=== PATIENT | female | born 1965 | race Caucasian/White ===

== ENCOUNTER 2021-04-12 11:31 | Outpatient (REF) | payer OTHER, SELFPAY ==
[2021-04-12 13:53] LABS: MANUAL DIFF FLAG NO
[2021-04-12 14:01] LABS: Basophils Absolute Auto 0.1 X10*3/uL (0.0-0.2); Basophils Percent Auto 0.7 % (0-2); Eosinophils Absolute Auto 0.2 X10*3/uL (0.0-0.4); Eosinophils Percent Auto 2.5 % (0-4); Hematocrit 41.3 % (37-47); Hemoglobin 13.4 g/dl (12.0-16.0); Imm Gran Abs Auto 0.03 X10*3/uL (0.00-0.03); Imm Gran Pct Auto 0.4 % (0.0-0.4); Lymphocytes Absolute Auto 2.1 X10*3/uL (1.2-4.9); Lymphocytes Percent Auto 31.1 % (20-40); Mean Corpuscular HGB Conc 32.4 g/dl (31.0-35.0); Mean Corpuscular Hemoglobin 28.8 pg (27.0-33.0); Mean Corpuscular Volume 88.8 fL (80-98); Mean Platelet Volume 10.8 fL (9.4-12.3); Monocytes Absolute Auto 0.7 X10*3/uL (0.1-1.2); Monocytes Percent Auto 9.9 % (2-11); Neutrophils Absolute Auto 3.7 X10*3/uL (2.0-8.3); Neutrophils Percent Auto 55.4 % (45-73); Platelet Count 347 X10*3/uL (160-400); Red Blood Count 4.65 X10*6/uL (4.20-5.50); White Blood Count 6.7 X10*3/uL (4.8-10.8)
[2021-04-12 14:17] LABS: Alanine Aminotransferase 25 U/L (0-31); Albumin Level 4.4 g/dL (3.5-5.0); Alkaline Phosphatase 101 U/L (39-117); Anion Gap 12 (12-20); Aspartate Amino Transferase 20 U/L (5-31); Bilirubin Total 0.4 mg/dL (0.0-1.0); Blood Urea Nitrogen 12 mg/dL (9-16); Calcium 10.2 mg/dL (8.4-10.2); Carbon Dioxide 30 mmol/L (22-29); Chloride 103 mmol/L (96-108); Cholesterol 211 mg/dL; Estimated Glomerular Filt Rate > 60; Glucose Fasting 103 mg/dL (60-99); HDL Cholesterol 56 mg/dL; LDL Cholesterol Calculated 135 mg/dl; Potassium 4.6 mmol/L (3.3-5.1); Sodium 140 mmol/L (135-145); Triglycerides 104 mg/dL
[2021-04-12 14:39] LABS: Vitamin D 25-OH Total 28.2 ng/mL (>30)
== END 2021-04-12 11:32 | disposition home or self-care (01) ==
LOC: HO.HMGCLDS 11:31
PROVIDERS: PCP Internal Medicine; Visit Provider Internal Medicine
DX: Z00.00 Encounter for general adult medical examination without abnormal findings (principal); G93.5 Compression of brain; K21.9 Gastro-esophageal reflux disease without esophagitis; K44.9 Diaphragmatic hernia without obstruction or gangrene; S32.019A Unspecified fracture of first lumbar vertebra, initial encounter for closed fracture; Z78.0 Asymptomatic menopausal state; Z86.16 Personal history of COVID-19; Z98.51 Tubal ligation status; Z98.890 Other specified postprocedural states
CPT/HCPCS: 36415; 80053; 80061; 82306; 85025

== ENCOUNTER 2021-07-10 15:47 | Outpatient (REF) | payer OTHER, SELFPAY ==
--- NOTE | ~2021-07-10 | US_ITS ---
EXAMINATION: US SOFT TISSUE OF THE NECK CLINICAL INFORMATION: Localized swelling, mass and lump, unspecified. COMPARISON: None TECHNIQUE: Linear transducer grayscale and color Doppler examination of the palpable area superior to clavicle. FINDINGS: In the region of concern there are 2 lymph nodes identified. These are less than 1 cm in size with normal morphology. No suspicious findings. US/US soft tiss head and/or neck IMPRESSION: 2 small lymph nodes are seen in the area of concern with no pathologic abnormality.
== END 2021-07-10 15:48 | disposition home or self-care (01) ==
LOC: HO.US 15:47
PROVIDERS: PCP Internal Medicine; Visit Provider Internal Medicine
DX: R22.9 Localized swelling, mass and lump, unspecified (principal)
CPT/HCPCS: 76536

== ENCOUNTER 2021-07-16 14:42 | Outpatient (REF) | payer OTHER, SELFPAY ==
--- NOTE | ~2021-07-16 | MM_ITS ---
EXAMINATION: MM SCREENING DIGITAL BREAST TOMOSYNTHESIS, BILATERAL CLINICAL INFORMATION: Screening. Asymptomatic. The lifetime risk of breast cancer based on the Tyrer-Cuzick Model is 8%. COMPARISON: Mammography: 08/19/2018, 08/18/2017, 08/14/2016 TECHNIQUE: Digital breast tomosynthesis is performed in both the craniocaudal and mediolateral oblique views along with computer-aided detection (CAD). Synthesized 2D images are generated from the tomosynthesis. FINDINGS: There are scattered areas of fibroglandular density (ACR BI-RADS breast composition Category b). There are no significant masses, abnormal calcifications, or other abnormalities. There are numerous scattered round, rim, predominantly dermal calcifications again noted. No significant changes. MM/MM tomosynthesis screening BI IMPRESSION: No mammographic evidence of malignancy. ASSESSMENT: BI-RADS 2: Benign RECOMMENDATION: Routine annual mammography screening. This patient's information was entered into a reminder system with a target due date for their next mammogram.
== END 2021-07-16 14:43 | disposition home or self-care (01) ==
LOC: HO.MAMMO 14:42
PROVIDERS: PCP Internal Medicine; Visit Provider Internal Medicine
DX: Z12.31 Encounter for screening mammogram for malignant neoplasm of breast (principal)
CPT/HCPCS: 77063; 77067

== ENCOUNTER 2021-09-18 12:19 | Outpatient (REF) | payer OTHER, SELFPAY ==
[2021-09-24 03:12] LABS: HPV mRNA E6/E7 rflx Not Detected (Not Detected)
== END 2021-09-18 12:20 | disposition home or self-care (01) ==
LOC: HO.LAB 12:19
PROVIDERS: Visit Provider Advanced Practice Midwife
DX: Z01.419 Encounter for gynecological examination (general) (routine) without abnormal findings (principal); Z11.51 Encounter for screening for human papillomavirus (HPV); N95.9 Unspecified menopausal and perimenopausal disorder; N90.89 Other specified noninflammatory disorders of vulva and perineum; G93.5 Compression of brain; Z86.19 Personal history of other infectious and parasitic diseases; Z98.51 Tubal ligation status; Z79.899 Other long term (current) drug therapy
CPT/HCPCS: 87624; 88142

== ENCOUNTER 2021-10-23 10:27 | Outpatient (REF) | payer OTHER, SELFPAY ==
--- NOTE | ~2021-10-23 | US_ITS ---
EXAMINATION: US VENOUS ULTRASOUND WITH DOPPLER LOWER EXTREMITY, BILATERAL CLINICAL INFORMATION: Right lower leg pain COMPARISON: None TECHNIQUE: Ultrasound of the deep veins is performed from the hip to the calf with compression sonography and color and pulse Doppler assessment. Spectral analysis with color-flow imaging is performed. FINDINGS: RIGHT: There is normal venous compression and respiratory variation and augmented flow. The visualized common femoral vein, superficial femoral vein, profunda femoral vein, popliteal vein, and the trifurcation region shows no evidence of deep venous thrombosis. There is no significant popliteal fossa cyst. No popliteal artery aneurysm LEFT: There is normal venous compression and respiratory variation and augmented flow. The visualized common femoral vein, superficial femoral vein, profunda femoral vein, popliteal vein, and the trifurcation region shows no evidence of deep venous thrombosis. There is no significant popliteal fossa cyst. No popliteal artery aneurysm. US/US venous duplex LE BI IMPRESSION: No acute DVT demonstrated in the bilateral lower extremity.
== END 2021-10-23 10:28 | disposition home or self-care (01) ==
LOC: HO.US 10:27
PROVIDERS: Visit Provider Internal Medicine
DX: M79.661 Pain in right lower leg (principal); M79.662 Pain in left lower leg
CPT/HCPCS: 93970

== ENCOUNTER 2021-11-21 08:10 | Outpatient (REF) | payer OTHER, SELFPAY ==
[2021-11-21 11:35] LABS: MANUAL DIFF FLAG NO
[2021-11-21 11:51] LABS: Basophils Absolute Auto 0.1 X10*3/uL (0.0-0.2); Basophils Percent Auto 0.9 % (0-2); Eosinophils Absolute Auto 0.1 X10*3/uL (0.0-0.4); Eosinophils Percent Auto 1.8 % (0-4); Hematocrit 40.4 % (37.0-47.0); Hemoglobin 12.9 g/dl (12.0-16.0); Imm Gran Abs Auto 0.02 X10*3/uL (0.00-0.03); Imm Gran Pct Auto 0.4 % (0.0-0.4); Lymphocytes Absolute Auto 1.9 X10*3/uL (1.2-4.9); Lymphocytes Percent Auto 35.9 % (20-40); Mean Corpuscular HGB Conc 31.9 g/dl (31.0-35.0); Mean Corpuscular Hemoglobin 29.1 pg (27.0-33.0); Mean Platelet Volume 11.1 fL (9.4-12.3); Monocytes Absolute Auto 0.6 X10*3/uL (0.1-1.2); Monocytes Percent Auto 10.9 % (2-11); Neutrophils Absolute Auto 2.7 x10*3/uL (2.0-8.3); Neutrophils Percent Auto 50.1 % (45-73); Platelet Count 341 X10*3/uL (160-400); Red Blood Count 4.44 X10*6/uL (4.20-5.50); Red Cell Distribution Width 13.1 % (11.0-16.0); White Blood Count 5.4 X10*3/uL (4.8-10.8)
[2021-11-21 12:17] LABS: Cholesterol 198 mg/dL; Glucose Fasting 116 mg/dL (60-99); HDL Cholesterol 54 mg/dL; LDL Cholesterol Calculated 125 mg/dl; Triglycerides 96 mg/dL
[2021-11-21 12:21] LABS: TSH reflex Free T4 1.22 uIU/mL (0.32-4.0); Vitamin D 25-OH Total 29.1 ng/mL (>30)
[2021-11-21 12:39] LABS: Folate 12.7 ng/mL (> or = 4.0); Vitamin B12 344 pg/mL (200-900)
== END 2021-11-21 08:11 | disposition home or self-care (01) ==
LOC: HO.HMGCLDS 08:10
PROVIDERS: Visit Provider Internal Medicine
DX: E55.9 Vitamin D deficiency, unspecified (principal); E78.5 Hyperlipidemia, unspecified; L65.9 Nonscarring hair loss, unspecified; R73.01 Impaired fasting glucose
CPT/HCPCS: 36415; 80061; 82306; 82607; 82746; 82947; 84443; 85025

== ENCOUNTER 2022-02-17 12:52 | Emergency (ER) | payer OTHER, SELFPAY ==
--- NOTE | ~2022-02-17 | XR_ITS ---
EXAMINATION: XR CHEST CLINICAL INFORMATION: Chest pain COMPARISON: None TECHNIQUE: Frontal view of the chest was obtained. FINDINGS: No significant abnormality is noted involving the heart, lungs, mediastinum, bony thorax or soft tissues. XR/XR chest 1V IMPRESSION: Unremarkable chest examination.
[2022-02-17 13:03] VITALS: BP 151/94; PULSE 71; RESP 18; TEMP 37.1; O2SAT 100; BMI 34.9
--- NOTE | 2022-02-17 13:10 | ECG_ITS ---
Test Reason : chest pain Blood Pressure : / mmHG Vent. Rate : 068 BPM Atrial Rate : 068 BPM P-R Int : 156 ms QRS Dur : 088 ms QT Int : 386 ms P-R-T Axes : 001 003 042 degrees QTc Int : 410 ms Normal sinus rhythm Minimal voltage criteria for LVH, may be normal variant ( R in aVL ) Borderline ECG When compared with ECG of 25-OCT-2015 19:55, No significant change was found Referred By: Generic ED Physician Electronically Signed By:SIENNA OVEIDO
[2022-02-17 13:25] LABS: MANUAL DIFF FLAG NO
[2022-02-17 13:26] LABS: Basophils Percent Auto 0.5 % (0-2); Eosinophils Absolute Auto 0.1 X10*3/uL (0.0-0.4); Hematocrit 40.3 % (37.0-47.0); Hemoglobin 13.4 g/dl (12.0-16.0); Imm Gran Abs Auto 0.02 X10*3/uL (0.00-0.03); Imm Gran Pct Auto 0.3 % (0.0-0.4); Lymphocytes Percent Auto 16.2 % (20-40); Mean Corpuscular HGB Conc 33.3 g/dl (31.0-35.0); Mean Corpuscular Hemoglobin 29.2 pg (27.0-33.0); Mean Corpuscular Volume 87.8 fL (80.0-98.0); Mean Platelet Volume 9.7 fL (9.4-12.3); Monocytes Absolute Auto 0.7 X10*3/uL (0.1-1.2); Monocytes Percent Auto 10.9 % (2-11); Neutrophils Absolute Auto 4.4 x10*3/uL (2.0-8.3); Neutrophils Percent Auto 71.1 % (45-73); Platelet Count 281 X10*3/uL (160-400); Red Blood Count 4.59 X10*6/uL (4.20-5.50); Red Cell Distribution Width 12.8 % (11.0-16.0); White Blood Count 6.2 X10*3/uL (4.8-10.8)
[2022-02-17 13:36] LABS: COVID-19 Test Positive (Negative); IDNOW Serial# 16C4AD1C
[2022-02-17 13:44] LABS: Anion Gap 13 (12-20); Blood Urea Nitrogen 12 mg/dL (9-16); Calcium 9.7 mg/dL (8.4-10.2); Carbon Dioxide 26 mmol/L (22-29); Chloride 103 mmol/L (96-108); Creatinine Clr Calc Pharmacy 100.7; Estimated Glomerular Filt Rate > 60; Glucose Random 95 mg/dL (60-115); Potassium 3.8 mmol/L (3.3-5.1); Sodium 138 mmol/L (135-145)
[2022-02-17 13:46] LABS: Troponin-I High Sensitivity < 3.5 ng/L (<3.5-17.0)
[2022-02-17 13:48] LABS: Influenza A Negative (Negative); Influenza B2 Negative (Negative)
--- NOTE | 2022-02-17 13:48 | ED.CHESTPAIN ---
HPI - Chest Pain General Chief Complaint: Chest Pain Stated Complaint: CHEST PAIN, COUGH Time Seen by Provider: 02/17/22 13:38 Source: patient Mode of arrival: ambulatory Limitations: no limitations History of Present Illness HPI narrative: Patient comes to the emergency room complaining of 3 days of sore throat, coughing, back and sternal chest pain with coughing. Patient denies fever, complaining of chills. Patient states her home COVID test was negative. Patient states she is immunized for COVID-19. Patient denies shortness of breath, no lower extremity pain Related Data Home Medications Medication Instructions Recorded Confirmed [id number] 250 2 tab PO Q6H PRN 04/12/21 11/19/21 mg-250 mg-65 mg tablet (Excedrin Extra Strength) multivitamin 1 tab PO DAILY 04/12/21 11/19/21 omeprazole 20 mg tablet,delayed 20 mg PO DAILY 04/12/21 11/19/21 release Previous Rx's Medication Instructions Recorded diclofenac sodium 1 % topical gel 4 g TOPICAL QID PRN #100 g 10/02/21 benzonatate 100 mg capsule 100 mg PO TID PRN #14 cap 02/17/22 nirmatrelvir 300 mg (150 mg x See Rx Instructions .ROUTE 02/17/22 2)-ritonavir 100 mg tablet (EUA) .COMPLEX #30 tab (Paxlovid 300 mg () Allergies Allergy/AdvReac Type Severity Reaction Status Date / Time No Known Allergies Allergy Verified 02/17/22 13:03 [No Known Allergies*] Review of Systems Review of Systems: Constitutional : No Weight loss, No Fever, No Chills, No Night Sweats, No Fatigue, No Malaise ENT/Mouth : No Hearing loss, No Ear Pain, No Nasal Congestion, No Sinus Pain, No Hoarseness, No sore throat, No Rhinorrhea, No Swallowing Difficulty Eyes: No Eye Pain, No Swelling, No Redness, No Foreign Body, No Discharge, No Vision Changes Cardiovascular : Substernal chest pain only with coughing, No SOB, No Dyspnea on Exertion, No Orthopnea, No Edema, No Palpitations Respiratory : Dry cough, No Wheezing, No Smoke Exposure, No Dyspnea Gastrointestinal : No Nausea, No Vomiting, No Diarrhea, No Constipation, No abdominal Pain, No Hematochezia, No Melena Genitourinary : no irregular bleeding, No Dysuria, No Urinary Frequency, No Hematuria, No Urinary Incontinence, No Urgency, No Flank Pain, No Urinary Flow Changes, No Hesitancy Musculoskeletal : No joint pain, No Myalgias, No Joint Swelling Skin : No Skin Lesions, No rash Neuro : No Weakness, No Numbness, No Paresthesias, No Loss of Consciousness, No Dizziness, No Headache Psych : No Anxiety/Panic, No Depression, No SI/HI/AH/VH, No Social Issues, Heme/Lymph: No Bruising, No Bleeding,No Lymphadenopathy Endocrine : No Polyuria, No Polydipsia, No Temperature Intolerance [facility] Past Medical History Medical History Chiari malformation type I Dyslipidemia GERD (gastroesophageal reflux disease) Hiatal hernia History of COVID-19 Impaired fasting glucose L1 vertebral fracture Vitamin D deficiency Surgical History Hx of colonoscopy Hx of tubal ligation Family History Family History Brother Cancer Father Cancer Social History Social History Housing: Condominium Patient Tobacco Use Status: Never used Tobacco e-Cigarette/Vaping Use: Never Used Second Hand Smoke Exposure: No Advance Directives: No Advance Directives Information Provided: No service: No Current occupational status: disabled Physical Exam Vital Signs: Vital Signs: Last Vital Signs Temp 98.7 F 02/17/22 13:03 Pulse 71 02/17/22 13:03 Resp 18 02/17/22 13:03 BP 151/94 H 02/17/22 13:03 Pulse Ox 100 02/17/22 13:03 BMI result Body Mass Index 34.9 Const: Other: Appearance: Alert. Oriented X3. No acute distress. Eyes: Pupils equal, round and reactive to light. ENT: Pharynx normal. Neck: Normal inspection. Neck supple. No lymph nodes noted. No crepitus CVS: Normal heart rate and rhythm. Pulses normal. Normal S1 and S2 Respiratory: No respiratory distress. Breath sounds normal. No Wheezing. No rales Abdomen: Soft and nontender. No rigidity. No distention. Skin: Skin warm and dry. Normal skin color. Normal skin turgor. Extremities: No lower extremity edema. No Lacerations. No Rash Neuro: Oriented X 3. No motor deficit. No sensory deficit. Moving all extremities. No slurred speech. CN 2 through 12 grossly intact Psych: calm, cooperative, normal affect Course Course Course Narrative: Patient is in the window of treatment for paxlovid. Patient's oxygen saturation is 100% on room air, even after exertion. Wells criteria for PE 0 MDM - Chest Pain Lab Data Result diagrams: 02/17/22 13:18 02/17/22 13:18 Labs: Lab Results 02/17/22 02/17/22 02/17/22 Range/Units 13:18 13:18 13:18 WBC 6.2 (4.8-10.8) X10*3/uL RBC 4.59 (4.20-5.50) X10*6/uL Hgb 13.4 (12.0-16.0) g/dl Hct 40.3 (37.0-47.0) % MCV 87.8 (80.0-98.0) fL MCH 29.2 (27.0-33.0) pg MCHC 33.3 (31.0-35.0) g/dl RDW 12.8 (11.0-16.0) % Plt Count 281 (160-400) X10*3/uL MPV 9.7 (9.4-12.3) fL Immature Gran % (Auto) 0.3 (0.0-0.4) % Neut % (Auto) 71.1 (45-73) % Lymph % (Auto) 16.2 L (20-40) % Wood % (Auto) 10.9 (2-11) % Eos % (Auto) 1.0 (0-4) % Baso % (Auto) 0.5 (0-2) % Lymph # (Auto) 1.0 L (1.2-4.9) X10*3/uL Wood # (Auto) 0.7 (0.1-1.2) X10*3/uL Eos # (Auto) 0.1 (0.0-0.4) X10*3/uL Baso # (Auto) 0.0 (0.0-0.2) X10*3/uL Abs Immat Gran (auto) 0.02 (0.00-0.03) X10*3/uL Absolute Neuts (auto) 4.4 (2.0-8.3) x10*3/uL Absolute Nucleated RBC 0.000 (0.0-0.012) X10*3/uL Nucleated RBC % (auto) 0.0 (0.0-0.2) /100WBC Sodium 138 (135-145) mmol/L Potassium 3.8 (3.3-5.1) mmol/L Chloride 103 (96-108) mmol/L Carbon Dioxide 26 (22-29) mmol/L Anion Gap 13 (12-20) BUN 12 (9-16) mg/dL Creatinine 0.72 (0.5-1.4) mg/dL Estim Creat Clear Calc 100.7 Estimated GFR > 60 Random Glucose 95 (60-115) mg/dL Calcium 9.7 (8.4-10.2) mg/dL Troponin I High Sens < 3.5 (<3.5-17.0) ng/L COVID-19 (ABILIO) (Negative) COVID-19 Clin Com Influenza Type A (ZACARIAS) (Negative) Influenza Type B (ZACARIAS) (Negative) Influenza A & B Note 02/17/22 02/17/22 Range/Units 13:18 13:18 WBC (4.8-10.8) X10*3/uL RBC (4.20-5.50) X10*6/uL Hgb (12.0-16.0) g/dl Hct (37.0-47.0) % MCV (80.0-98.0) fL MCH (27.0-33.0) pg MCHC (31.0-35.0) g/dl RDW (11.0-16.0) % Plt Count (160-400) X10*3/uL MPV (9.4-12.3) fL Immature Gran % (Auto) (0.0-0.4) % Neut % (Auto) (45-73) % Lymph % (Auto) (20-40) % Wood % (Auto) (2-11) % Eos % (Auto) (0-4) % Baso % (Auto) (0-2) % Lymph # (Auto) (1.2-4.9) X10*3/uL Wood # (Auto) (0.1-1.2) X10*3/uL Eos # (Auto) (0.0-0.4) X10*3/uL Baso # (Auto) (0.0-0.2) X10*3/uL Abs Immat Gran (auto) (0.00-0.03) X10*3/uL Absolute Neuts (auto) (2.0-8.3) x10*3/uL Absolute Nucleated RBC (0.0-0.012) X10*3/uL Nucleated RBC % (auto) (0.0-0.2) /100WBC Sodium (135-145) mmol/L Potassium (3.3-5.1) mmol/L Chloride (96-108) mmol/L Carbon Dioxide (22-29) mmol/L Anion Gap (12-20) BUN (9-16) mg/dL Creatinine (0.5-1.4) mg/dL Estim Creat Clear Calc Estimated GFR Random Glucose (60-115) mg/dL Calcium (8.4-10.2) mg/dL Troponin I High Sens (<3.5-17.0) ng/L COVID-19 (ABILIO) Positive A (Negative) COVID-19 Clin Com See Note Influenza Type A (ZACARIAS) Negative (Negative) Influenza Type B (ZACARIAS) Negative (Negative) Influenza A & B Note See Note Discharge Plan Discharge Clinical Impression: COVID-19 Patient Disposition: Home, Self-Care Instructions: COVID-19 (Coronavirus Disease 2019) (ED) Additional Instructions: You Need to quarantine 5 days at home. Please follow-up with your primary care physician tomorrow. If you have any worsening or new symptoms, please return to the emergency room or call 911 Prescriptions: New Paxlovid (EUA) 150 mg x 2- 100 mg tablet See Rx Instructions .ROUTE .COMPLEX Qty: 30 0RF Rx Instructions: take TWO 150 mg tablets of nirmatrelvir with ONE 100 mg tablet of ritonavir twice daily for 5 days benzonatate 100 mg capsule 100 mg PO TID PRN (Reason: cough) Qty: 14 0RF No Action omeprazole 20 mg tablet,delayed release (DR/EC) 20 mg PO DAILY 0RF Excedrin Extra Strength 250-250-65 mg tablet 2 tab PO Q6H PRN0RF multivitamin Tablet 1 tab PO DAILY 0RF diclofenac sodium 1 % gel 4 g topical QID PRN (Reason: knee pain) Qty: 100 0RF
[2022-02-17] MEDS: Benzonatate 100 MG CAPSULE 200 MG PO (14:12)
== END 2022-02-17 14:16 | disposition home or self-care (01) ==
PROVIDERS: Emergency Provider Emergency Medicine; PCP Internal Medicine
DX: U07.1 COVID-19 (principal); R07.9 Chest pain, unspecified
CPT/HCPCS: 36415; 71045; 80048; 84484; 85025; 87502; 87635; 93005; 99283

== ENCOUNTER 2022-02-24 10:26 | Outpatient (REF) | payer OTHER, SELFPAY ==
[2022-02-24 10:55] LABS: Binax Now Covid-19 Ag Negative (Negative)
[2022-02-24 10:56] LABS: Binax Internal Control QC Valid; Binax Performed by: HO.BONILM
== END 2022-02-24 10:27 | disposition home or self-care (01) ==
LOC: HO.HMGCLDS 10:26
PROVIDERS: PCP Internal Medicine; Visit Provider Internal Medicine
DX: Z20.822 Contact with and (suspected) exposure to COVID-19 (principal); J06.9 Acute upper respiratory infection, unspecified
CPT/HCPCS: 87811; C9803

== ENCOUNTER 2022-06-09 08:00 | Outpatient (REF) | payer OTHER, SELFPAY ==
[2022-06-09 08:49] LABS: Estimated Average Glucose 114 mg/dL; Hemoglobin A1c % 5.6 %
[2022-06-09 09:09] LABS: Glucose Fasting 109 mg/dL (60-99)
[2022-06-09 09:26] LABS: TSH reflex Free T4 1.19 uIU/mL (0.32-4.0); Vitamin D 25-OH Total 30.9 ng/mL (>30)
== END 2022-06-09 08:01 | disposition home or self-care (01) ==
LOC: HO.LAB 08:00
PROVIDERS: PCP Internal Medicine; Visit Provider Internal Medicine
DX: Z00.01 Encounter for general adult medical examination with abnormal findings (principal); E55.9 Vitamin D deficiency, unspecified; R07.0 Pain in throat; R73.01 Impaired fasting glucose
CPT/HCPCS: 36415; 82306; 82947; 83036; 84443

== ENCOUNTER 2022-07-01 23:49 | Emergency (ER) | payer OTHER, SELFPAY ==
--- NOTE | ~2022-07-01 | XR_ITS ---
EXAMINATION: XR CHEST CLINICAL INFORMATION: Chest pain COMPARISON: 02/17/2022 TECHNIQUE: Frontal view of the chest was obtained. FINDINGS: No significant abnormality is noted involving the heart, lungs, mediastinum, bony thorax or soft tissues. XR/XR chest 1V IMPRESSION: Unremarkable examination.
[2022-07-02 00:03] VITALS: BP 172/80; PULSE 67; RESP 18; TEMP 36; O2SAT 98; BMI 34.4
--- NOTE | 2022-07-02 00:11 | ECG_ITS ---
Test Reason : CHEST PAIN Blood Pressure : / mmHG Vent. Rate : 064 BPM Atrial Rate : 064 BPM P-R Int : 162 ms QRS Dur : 086 ms QT Int : 416 ms P-R-T Axes : -01 000 027 degrees QTc Int : 429 ms Normal sinus rhythm Minimal voltage criteria for LVH, may be normal variant ( R in aVL ) RSR' or QR pattern in V1 suggests right ventricular conduction delay Abnormal ECG When compared with ECG of 17-FEB-2022 13:07, No significant change was found Referred By: Generic ED Physician Electronically Signed By:IMMANUEL ALMODOVAR MD
[2022-07-02 00:39] LABS: MANUAL DIFF FLAG NO
[2022-07-02 00:41] LABS: Basophils Absolute Auto 0.1 X10*3/uL (0.0-0.2); Basophils Percent Auto 0.8 % (0-2); Eosinophils Absolute Auto 0.1 X10*3/uL (0.0-0.4); Eosinophils Percent Auto 1.4 % (0-4); Hematocrit 37.4 % (37.0-47.0); Hemoglobin 12.2 g/dl (12.0-16.0); Imm Gran Abs Auto 0.04 X10*3/uL (0.00-0.03); Imm Gran Pct Auto 0.5 % (0.0-0.4); Lymphocytes Absolute Auto 2.3 X10*3/uL (1.2-4.9); Lymphocytes Percent Auto 27.1 % (20-40); Mean Corpuscular HGB Conc 32.6 g/dl (31.0-35.0); Mean Corpuscular Hemoglobin 28.5 pg (27.0-33.0); Mean Corpuscular Volume 87.4 fL (80.0-98.0); Monocytes Absolute Auto 0.9 X10*3/uL (0.1-1.2); Monocytes Percent Auto 9.9 % (2-11); Neutrophils Absolute Auto 5.2 x10*3/uL (2.0-8.3); Neutrophils Percent Auto 60.3 % (45-73); Platelet Count 316 X10*3/uL (160-400); Red Blood Count 4.28 X10*6/uL (4.20-5.50); Red Cell Distribution Width 12.9 % (11.0-16.0); White Blood Count 8.6 X10*3/uL (4.8-10.8)
[2022-07-02 00:56] LABS: Anion Gap 16 (12-20); Blood Urea Nitrogen 18 mg/dL (9-16); Calcium 9.5 mg/dL (8.4-10.2); Carbon Dioxide 25 mmol/L (22-29); Chloride 104 mmol/L (96-108); Estimated Glomerular Filt Rate > 60; Glucose Random 144 mg/dL (60-115); Sodium 141 mmol/L (135-145)
[2022-07-02 01:01] LABS: COVID-19 Test Negative (Negative); Troponin-I High Sensitivity < 3.5 ng/L (<3.5-17.0)
[2022-07-02 02:34] VITALS: BP 180/79; PULSE 66; RESP 18; TEMP 36.6; O2SAT 99
--- NOTE | 2022-07-02 03:30 | ED_ITS ---
HPI - URI/Sore Throat General Chief Complaint: Upper Respiratory Symptoms Stated Complaint: Chest pain/Cough Time Seen by Provider: 07/02/22 03:16 Source: patient Mode of arrival: ambulatory Limitations: no limitations History of Present Illness HPI Narrative: Patient complaining of sore throat cough for last 5 days seen at urgent care center prescribed amoxicillin rapid strep was negative COVID was negative ever ent grandson was sick with same positive for RSV last week. Patient denies any significant shortness of breath Related Data Home Medications Medication Instructions Recorded Confirmed [id number] 250 2 tab PO Q6H PRN 04/12/21 11/19/21 mg-250 mg-65 mg tablet (Excedrin Extra Strength) cholecalciferol (vitamin D3) 50 50 mcg PO DAILY 06/06/22 mcg (2,000 unit) capsule lidocaine 5 % topical patch 1 patch topical DAILY 06/06/22 omeprazole 20 mg tablet,delayed 20 mg PO .QOD 06/06/22 release Allergies Allergy/AdvReac Type Severity Reaction Status Date / Time No Known Allergies Allergy Verified 07/02/22 00:03 [No Known Allergies*] Review of Systems Review of Systems: Yes all other systems are reviewed and are negative PMFSH Past Medical History Medical History (Updated 07/02/22 @ 06:31 by Landon Lainez MD) Chiari malformation type I Dyslipidemia GERD (gastroesophageal reflux disease) Hiatal hernia History of COVID-19 Impaired fasting glucose L1 vertebral fracture Obesity (BMI 35.0-39.9 without comorbidity) Refused influenza vaccine Vitamin D deficiency Surgical History Hx of colonoscopy Hx of tubal ligation Family History Family History (Updated 06/06/22 @ 14:19 by Bela Beranl MD) Brother Cancer Diabetes mellitus Father Cancer Mother Diabetes mellitus Dementia Social History Social History Housing: Condominium Patient Tobacco Use Status: Never used Tobacco e-Cigarette/Vaping Use: Never Used Second Hand Smoke Exposure: No Advance Directives: No Advance Directives Information Provided: Yes service: No Current occupational status: disabled Cognitive needs: No Hearing needs: No Vision needs: No Physical Exam Vital Signs: Vital Signs: Last Vital Signs Temp 97.8 F 07/02/22 02:34 Pulse 66 07/02/22 02:34 Resp 18 07/02/22 02:34 BP 180/79 H 07/02/22 02:34 Pulse Ox 99 07/02/22 02:34 O2 Del Method 07/02/22 02:34 BMI result Body Mass Index 34.4 Appearance: Alert. Oriented X3. No acute distress. Eyes: PERRLA, No Nystagmus ENT: Pharynx normal. Oral Mucosa moist Neck: Normal inspection. Neck supple. CVS: Normal heart rate and rhythm. Pulses normal. Respiratory: No respiratory distress. Equal air entry bilateral, no wheezing/rales/rhonchi Abdomen: Soft and nontender. Bowel sounds are present, no mass palpable, no CVA tenderness Skin: Skin warm and dry. Normal skin color. Normal skin turgor. Extremities: No lower extremity edema. No calf tenderness Neuro: Oriented X 3. No motor deficit. MDM - URI/Sore Throat MDM Narrative Medical decision making narrative: Patient likely with RSV bronchitis will do RSV testing Lab Data Attestation: I reviewed the patient's lab results. Result diagrams: 07/02/22 00:23 07/02/22 00:23 Labs: Lab Results 07/02/22 07/02/22 07/02/22 Range/Units 00:23 00:23 00:23 WBC 8.6 (4.8-10.8) X10*3/uL RBC 4.28 (4.20-5.50) X10*6/uL Hgb 12.2 (12.0-16.0) g/dl Hct 37.4 (37.0-47.0) % MCV 87.4 (80.0-98.0) fL MCH 28.5 (27.0-33.0) pg MCHC 32.6 (31.0-35.0) g/dl RDW 12.9 (11.0-16.0) % Plt Count 316 (160-400) X10*3/uL MPV 10.0 (9.4-12.3) fL Immature Gran % (Auto) 0.5 H (0.0-0.4) % Neut % (Auto) 60.3 (45-73) % Lymph % (Auto) 27.1 (20-40) % Carter % (Auto) 9.9 (2-11) % Eos % (Auto) 1.4 (0-4) % Baso % (Auto) 0.8 (0-2) % Lymph # (Auto) 2.3 (1.2-4.9) X10*3/uL Carter # (Auto) 0.9 (0.1-1.2) X10*3/uL Eos # (Auto) 0.1 (0.0-0.4) X10*3/uL Baso # (Auto) 0.1 (0.0-0.2) X10*3/uL Abs Immat Gran (auto) 0.04 H (0.00-0.03) X10*3/uL Absolute Neuts (auto) 5.2 (2.0-8.3) x10*3/uL Absolute Nucleated RBC 0.000 (0.0-0.012) X10*3/uL Nucleated RBC % (auto) 0.0 (0.0-0.2) /100WBC Sodium 141 (135-145) mmol/L Potassium 4.0 (3.3-5.1) mmol/L Chloride 104 (96-108) mmol/L Carbon Dioxide 25 (22-29) mmol/L Anion Gap 16 (12-20) BUN 18 H (9-16) mg/dL Creatinine 0.81 (0.5-1.4) mg/dL Estim Creat Clear Calc 92.0 Estimated GFR > 60 Random Glucose 144 H (60-115) mg/dL Calcium 9.5 (8.4-10.2) mg/dL Troponin I High Sens < 3.5 (<3.5-17.0) ng/L COVID-19 (ABILIO) (Negative) COVID-19 Clin Com 07/02/22 Range/Units 00:23 WBC (4.8-10.8) X10*3/uL RBC (4.20-5.50) X10*6/uL Hgb (12.0-16.0) g/dl Hct (37.0-47.0) % MCV (80.0-98.0) fL MCH (27.0-33.0) pg MCHC (31.0-35.0) g/dl RDW (11.0-16.0) % Plt Count (160-400) X10*3/uL MPV (9.4-12.3) fL Immature Gran % (Auto) (0.0-0.4) % Neut % (Auto) (45-73) % Lymph % (Auto) (20-40) % Carter % (Auto) (2-11) % Eos % (Auto) (0-4) % Baso % (Auto) (0-2) % Lymph # (Auto) (1.2-4.9) X10*3/uL Carter # (Auto) (0.1-1.2) X10*3/uL Eos # (Auto) (0.0-0.4) X10*3/uL Baso # (Auto) (0.0-0.2) X10*3/uL Abs Immat Gran (auto) (0.00-0.03) X10*3/uL Absolute Neuts (auto) (2.0-8.3) x10*3/uL Absolute Nucleated RBC (0.0-0.012) X10*3/uL Nucleated RBC % (auto) (0.0-0.2) /100WBC Sodium (135-145) mmol/L Potassium (3.3-5.1) mmol/L Chloride (96-108) mmol/L Carbon Dioxide (22-29) mmol/L Anion Gap (12-20) BUN (9-16) mg/dL Creatinine (0.5-1.4) mg/dL Estim Creat Clear Calc Estimated GFR Random Glucose (60-115) mg/dL Calcium (8.4-10.2) mg/dL Troponin I High Sens (<3.5-17.0) ng/L COVID-19 (ABILIO) Negative (Negative) COVID-19 Clin Com See Note Discharge Plan Discharge Clinical Impression: Bronchitis Patient Disposition: Elopement Instructions: Acute Bronchitis (ED) Prescriptions: No Action cholecalciferol (vitamin D3) 50 mcg (2,000 unit) capsule 50 mcg PO DAILY lidocaine 5 % adhesive patch,medicated 1 patch topical DAILY Rx Instructions: leave on most painful area for up to 12 hrs Excedrin Extra Strength 250-250-65 mg tablet 2 tab PO Q6H PRN omeprazole 20 mg tablet,delayed release (DR/EC) 20 mg PO .QOD Discharge Date/Time: 07/02/22 04:33
--- NOTE | 2022-07-02 04:30 | PC.NURSE ---
Called respiratory for breathing treatment and to give medication. Pt no longer in room. Left with out notifiy staff.
== END 2022-07-02 04:33 | disposition left against medical advice (07) ==
PROVIDERS: Emergency Provider Internal Medicine; PCP Internal Medicine
DX: J40 Bronchitis, not specified as acute or chronic (principal); J02.9 Acute pharyngitis, unspecified; Z20.822 Contact with and (suspected) exposure to COVID-19
CPT/HCPCS: 36415; 71045; 80048; 84484; 85025; 87635; 93005; 99283

== ENCOUNTER 2022-07-18 09:15 | Outpatient (REF) | payer OTHER, SELFPAY ==
--- NOTE | ~2022-07-18 | MM_ITS ---
EXAMINATION: MM SCREENING DIGITAL BREAST TOMOSYNTHESIS, BILATERAL CLINICAL INFORMATION: Screening. Asymptomatic. COMPARISON: Mammography: 07/16/2021, 08/19/2018, 08/18/2017 TECHNIQUE: Digital breast tomosynthesis is performed in both the craniocaudal and mediolateral oblique views along with computer-aided detection (CAD). Synthesized 2D images are generated from the tomosynthesis. FINDINGS: There are scattered areas of fibroglandular density (ACR BI-RADS breast composition Category b). Parenchymal pattern is similar to prior studies and there is no developing density or interval mass or architectural abnormality. There are scattered bilateral benign round, rim, predominantly dermal calcifications. The axilla and skin contours are unremarkable. No significant changes. MM/MM tomosynthesis screening BI IMPRESSION: No significant changes from prior exam. ASSESSMENT: BI-RADS 2: Benign RECOMMENDATION: Routine annual mammography screening. This patient's information was entered into a reminder system with a target due date for their next mammogram.
== END 2022-07-18 09:16 | disposition home or self-care (01) ==
LOC: HO.MAMMO 09:15
PROVIDERS: PCP Internal Medicine; Visit Provider Internal Medicine
DX: Z12.31 Encounter for screening mammogram for malignant neoplasm of breast (principal)
CPT/HCPCS: 77063; 77067

== ENCOUNTER → 2022-08-19 09:40 | Outpatient (BNVA) | payer OTHER, SELFPAY | PROVIDERS: PCP Internal Medicine; Visit Provider Nurse Practitioner Family | DX: G43.009 Migraine without aura, not intractable, without status migrainosus (principal); G93.5 Compression of brain; M79.18 Myalgia, other site; R06.83 Snoring; G47.19 Other hypersomnia; G47.9 Sleep disorder, unspecified; E66.9 Obesity, unspecified; Z68.34 Body mass index [BMI] 34.0-34.9, adult | CPT/HCPCS: 99202 ==

== ENCOUNTER 2022-09-18 11:37 | Outpatient (REF) | payer OTHER, SELFPAY ==
--- NOTE | ~2022-09-18 | US_ITS ---
EXAMINATION: US VENOUS ULTRASOUND WITH DOPPLER LOWER EXTREMITY, RIGHT CLINICAL INFORMATION: Right lower extremity pain COMPARISON: Bilateral DVT study 10/23/2021 TECHNIQUE: Ultrasound of the deep veins is performed from the hip to the calf with compression sonography and color and pulse Doppler assessment. Spectral analysis with color-flow imaging is performed. FINDINGS: There is normal venous compression and respiratory variation and augmented flow. The visualized common femoral vein, superficial femoral vein, profunda femoral vein, popliteal vein, and the trifurcation region shows no evidence of deep venous thrombosis. There is no significant popliteal fossa cyst. If the patient's symptoms persist, followup ultrasound in 5 days 7 days might be of value to exclude proximal propagation from a non-visualized calf vein. US/US venous duplex LE RT IMPRESSION: No DVT demonstrated in the right lower extremity.
--- NOTE | ~2022-09-18 | XR_ITS ---
EXAMINATION: XR KNEE, RIGHT CLINICAL INFORMATION: Right knee pain COMPARISON: None TECHNIQUE: Four views of the right knee. FINDINGS: Bones and soft tissues are unremarkable aside from some mild narrowing of the medial compartment. No fracture or joint effusion. Alignment is anatomic. Lateral and patellofemoral compartment are well maintained. No abnormal soft tissue calcification. XR/XR knee RT 4V IMPRESSION: Mild narrowing of the medial compartment.
== END 2022-09-18 11:38 | disposition home or self-care (01) ==
LOC: HO.HMGCX 11:37
PROVIDERS: PCP Internal Medicine; Visit Provider Internal Medicine
DX: M79.604 Pain in right leg (principal); M25.561 Pain in right knee
CPT/HCPCS: 73564; 93971

== ENCOUNTER 2022-10-01 11:05 | Outpatient (REF) | payer OTHER, SELFPAY ==
--- NOTE | ~2022-10-01 | XR_ITS ---
EXAMINATION: XR knee standing BI, XR knee RT 1V CLINICAL INFORMATION: Reason for Exam M25.561 - Pain in right knee COMPARISON: None available at the time of this dictation. TECHNIQUE: Bilateral frontal standing, right knee patella sunrise view. FINDINGS: BONES: No fracture or dislocation is present. Patella properly positioned. JOINTS: Mild narrowing of medial joint space compartments bilaterally. 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 * No joint effusion.
--- NOTE | ~2022-10-01 | XR_ITS ---
EXAMINATION: XR knee standing BI, XR knee RT 1V CLINICAL INFORMATION: Reason for Exam M25.561 - Pain in right knee COMPARISON: None available at the time of this dictation. TECHNIQUE: Bilateral frontal standing, right knee patella sunrise view. FINDINGS: BONES: No fracture or dislocation is present. Patella properly positioned. JOINTS: Mild narrowing of medial joint space compartments bilaterally. 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 * No joint effusion.
== END 2022-10-01 11:06 | disposition home or self-care (01) ==
LOC: HO.HOSX 11:05
PROVIDERS: Visit Provider Physician Assistant
DX: M17.11 Unilateral primary osteoarthritis, right knee (principal); M25.562 Pain in left knee; M79.605 Pain in left leg
CPT/HCPCS: 73560; 73565; 99202

== ENCOUNTER → 2022-10-08 09:28 | Outpatient (REF) | payer OTHER, SELFPAY | LOC: HO.SL 09:28 | PROVIDERS: PCP Internal Medicine; Visit Provider Nurse Practitioner Family | DX: G47.9 Sleep disorder, unspecified (principal); G47.19 Other hypersomnia; E66.9 Obesity, unspecified; R06.83 Snoring | CPT/HCPCS: 95806 ==

== ENCOUNTER 2022-11-13 10:00 | Outpatient (RCR) | payer OTHER, SELFPAY ==
--- NOTE | 2022-09-24 13:33 | MHC.PT.EP ---
[facility] [place] Office [place] Office [place] Office [address] [phone] F: [phone] F: [phone] F: [phone] F: [phone] Physical Therapy Plan of Care Date of Evaluation: Date of Surgery: Diagnosis: MIGRAINE WITHOUT AURA Assessment: 57 YO FEMALE REF TO PT W A DX OF MIGRAINES WITHOUT AN AURA- SHE HAS HAD A H/O RAMEY x 1-12 YRS, BUT NOTES OVER TOE PAST 7-12 MONTHS THE FREQ AND INTENSITY HAVE INCR -> MIGRAINES. OF NOTE, Pt WAS DX W A GRADE 1 CHIARI MALFORMATION. 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 Pt IS Rt HAND DOMINANT AND HER MIGRAINES ARE PREDOMINANTLY LOCATED IN HER Rt PARIETAL REGION. SHE HAS DECR CERV AROM, (+) SOFT TISSUE IRRITABILITY AND RESTRICTION IN Rt UT/ CERV PS MM, DECR POSTURAL AWARENESS, TIGHT ANT CHAIN, AND STRENGTH DEFICITS IN HER POST RC/ MID BACK REGION. SHE WOULD BENEFIT FROM PT TO ADDRESS THE ABOVE FINDINGS, EASE TISSUE TENSION, AND MOST IMPORTANTLY IMPROVE POSTURE/ DEV HEP. Frequency and Duration: The patient will be seen 2 x WK x 5 WKS Short Term Goals: *Pt'S MIGRAINE FREQ DECR BY 50% *Pt'S MIGRAINE PAIN (Rt SIDE) DECR TO 2-3/10 IN INTENSITY *Pt INDEP SELF-CORRECT SITTING/ STANDING/ SIMUL ADL POSTURE *IMPROVE CERVICAL AROM REDUCE Rt CERV SOFT TISSUE TENSION Rectifying Attendant Goals: *Pt INDEP W PROGR HEP AND SELF-SX MGMT STRATEGIES *Pt RESUME REG ADLs/ FITNESS WALKING/ IMPROVE FUCNT MOB SUNITA EVIDENT W IMPROVED NPDI (AT EVAL ) *Pt IMPROVE SLEEPING TOLERANCE/ MORE EFFICIENT W SLEEP POSTURES/ SUPPORT Treatment Plan: Modalities to reduce pain, spasms and effusion. Manual therapy to restore motion and function. Therapeutic exercise to improve strength and flexibility. Neuromuscular re-education for posture and balance. Therapeutic activities to return to functional activities of daily living. Electronically signed by: NARESH PERSAUD,PT Please sign and return to therapist. Thank you for your referral.
--- NOTE | 2022-11-13 11:35 | MHC.PT.DC ---
[facility] [place] Office [place] Office [place] Office [address] Kellie Lopez [address] [phone] F: [phone] F: [phone] F: [phone] F: [phone] Physical Therapy Discharge Report Diagnosis: MIGRAINE WITHOUT AURA Date of Surgery: Date of Evaluation: 09/24/22 Date of Discharge: 11/13/22 Treatments to Date: 10 Cancellations to Date: 2 No Shows to Date: 0 Discharge Status: Achieved Goals Improved Function Independent with HEP Discharge Summary: Pt HAS PROGRESSED W PT-> IMPROVED POSTURAL AWARENESS/ SELF CORRECTION, IMPROVED CERVICAL QUALTIY OF MOTION, IMPROVED POST RC/ SCAPULAR STRENGTH, AND REDUCED INTENSITY AN DFREQ OF MIGRAINES. WE HAVE ADDRESSED CERV STAB/ UPPER BACK STRENGTH W A PROGRESSIVE HEP- Pt HAS MET HER PT GOALS AT THIS TIME AND IS D/C'D - HER NPDI SCORE TODAY AT D/C IS 7/45 AND AT INITIAL EVAL IT WAS 28/45. Electronically signed by: NARESH PERSAUD,PT Please sign and return to therapist. Thank you for your referral.
== END 2022-11-13 11:36 | disposition home or self-care (01) ==
LOC: HO.PT 10:00
PROVIDERS: PCP Internal Medicine; Visit Provider Nurse Practitioner Family
DX: M79.18 Myalgia, other site (principal); G43.009 Migraine without aura, not intractable, without status migrainosus
CPT/HCPCS: 97035; 97110; 97140; 97162

== ENCOUNTER → 2022-12-02 10:43 | Outpatient (BNVA) | payer OTHER, SELFPAY | PROVIDERS: Visit Provider Nurse Practitioner Family | DX: G43.009 Migraine without aura, not intractable, without status migrainosus (principal); G93.5 Compression of brain; G47.33 Obstructive sleep apnea (adult) (pediatric); R51.9 Headache, unspecified | CPT/HCPCS: 99212 ==

== ENCOUNTER 2023-01-09 10:20 | Outpatient (REF) | payer OTHER, SELFPAY ==
--- NOTE | ~2023-01-09 | MR_ITS ---
EXAMINATION: MR BRAIN WITHOUT CONTRAST CLINICAL INFORMATION: Migraine COMPARISON: None TECHNIQUE: Multiplanar multisequence MR imaging of the brain was obtained without intravenous contrast. FINDINGS: There is no acute infarct on diffusion-weighted imaging. There is no intracranial hemorrhage on iron-sensitive imaging. No extra-axial collection or mass effect/herniation. There are several scattered foci of nonspecific supratentorial white matter T2/FLAIR signal abnormality. No hydrocephalus. The ventricles are normal in morphology and size. The major flow voids at the skull base are preserved. The midline structures are normal. There is low positioning of the right greater than left cerebellar tonsils which extend up to 1.2 cm below the foramen magnum and demonstrate a patent morphology, compatible with Chiari I malformation. The craniocervical junction is normal. Marrow signal is within normal limits. The visualized soft tissues are without significant abnormality. No signal abnormality within the paranasal sinuses or within the mastoid air cells. MR/MR head/brain wo con IMPRESSION: Low positioning of the cerebellar tonsils, compatible with Chiari I malformation
== END 2023-01-09 10:21 | disposition home or self-care (01) ==
LOC: HO.MRI 10:20
PROVIDERS: PCP Internal Medicine; Visit Provider Nurse Practitioner Family
DX: G43.009 Migraine without aura, not intractable, without status migrainosus (principal); G93.5 Compression of brain
CPT/HCPCS: 70551

== ENCOUNTER → 2023-02-20 10:53 | Outpatient (BNVA) | payer OTHER, SELFPAY | PROVIDERS: PCP Internal Medicine; Visit Provider Nurse Practitioner Family | DX: G43.009 Migraine without aura, not intractable, without status migrainosus (principal); G93.5 Compression of brain; G47.33 Obstructive sleep apnea (adult) (pediatric) | CPT/HCPCS: 99212 ==

== ENCOUNTER 2023-06-08 12:18 | Outpatient (AMB) | payer OTHER, SELFPAY ==
[2023-06-08 12:53] VITALS: BP 130/78; PULSE 65; O2SAT 98; BMI 34.4
--- NOTE | 2023-06-08 12:53 | A.OFFPC_ITS ---
<Statement entered by Bela Bernal MD - 01/18/25 15:21> This note has been administratively?closed. Vital Signs 06/08/23 12:53 Height 5 ft 6 in Weight 213 lb BMI 34.4 BP 130/78 Blood Pressure Location Rt brachial Position Sitting Pulse 65 Pulse Source Pulse Oximeter Pulse Oximetry (%) 98 Oxygen Delivery Method Room Air Intake Visit Reasons: PE Intake Note: patient is here today for her PE Allergies Seasonal Allergies Allergy (Intermediate, Verified 06/08/23 12:54) sneezing and coughing Tobacco use date assessed: 06/08/23 Dental Screening Dental Screen Date: 06/08/23 Did you have a dental visit in the last 12 months?: Yes Did you have a dental problem in the last 6 months where you did not have access to dental care?: No Was dental information given to patient?: Patient has dentist [facility] Medical History (Updated 06/08/23 @ 13:40 by Bela Bernal MD) Worsening headaches Refused influenza vaccine Obesity (BMI 35.0-39.9 without comorbidity) Impaired fasting glucose Dyslipidemia Vitamin D deficiency L1 vertebral fracture Chiari malformation type I History of COVID-19 Hiatal hernia GERD (gastroesophageal reflux disease) Surgical History Hx of tubal ligation Hx of colonoscopy Family History Brother Cancer Diabetes mellitus Father Cancer Mother Diabetes mellitus Dementia H/O heart surgery Social History Housing: Condominium Alcohol intake: never Patient Tobacco Use Status: Never used Tobacco e-Cigarette/Vaping Use: Never Used Second Hand Smoke Exposure: No service: No Current occupational status: disabled Cognitive needs: No Hearing needs: No Vision needs: No Questionnaire PHQ-9 Over the last 2 weeks, how often have you been bothered by any of the following problems? 1. Little interest or pleasure in doing things: several days 2. Feeling down, depressed, or hopeless: not at all 3. Trouble falling or staying asleep, or sleeping too much: several days 4. Feeling tired or having little energy: several days 5. Poor appetite or overeating: several days 6. Feeling bad about yourself - or that you are a failure or have let yourself or your family down: not at all 7. Trouble concentrating on things, such as reading the newspaper or watching television: several days 8. Moving or speaking so slowly that other people could have noticed. Or the opposite - being so fidgety or restless that you have been moving around a lot more than usual: not at all 9. Thoughts that you would be better off or of hurting yourself in some way: not at all Total score: 5 Depression Screening Interpretation: Negative 38891 - PHQ-9 Billing: Yes Source: Developed by Drs. Lucian Bacon, Heidi Borrego, Drew Rico and colleagues, with an educational pedro from [employer]. Thrive Questionnaire Date Thrive assessed: 06/08/23 I am a: Patient What is your living situation today?: I have a steady place to live Within the past 12 months, did the food you bought not last and you didn't have the money to get more?: Never true Within the past 12 months, did you worry whether your food would run out before you got money to buy more?: Never true Do you have trouble paying for medicines?: No Do you have trouble getting transportation to medical appointments?: No Do you have trouble paying your heating and electricity bill?: No Do you have trouble taking care of your child, family member or friend?: No Do you have trouble with day-to-day activities such as bathing, preparing meals, shopping, managing finances, etc.?: No Are you currently unemployed and looking for a job?: No Are you interested in more education?: No Please select the resources that you would like help with: None AUDIT C Alcohol Use Questionnaire (AUDIT-C) 1. How often do you have a drink containing alcohol?: Never Total Score: 0 ERVIN-7 AMB Questionnaire ERVIN-7 Date ERVIN - 7 assessed: 06/08/23 Feeling nervous, anxious, or on edge: 1 = Several days Not being able to stop or control worryin = Several days Worrying too much about different things: 1 = Several days Trouble relaxin = Several days Being so restless that it is hard to sit still: 0 = Not at all Becoming easily annoyed or irritable: 0 = Not at all Feeling afraid as if something awful might happen: 0 = Not at all Total ERVIN-7 score (0-4 normal; 5-9 mild; 10-14 moderate; 15-21 severe): 4 Source: Developed by Drs. Lucian Bacon, Heidi Borrego, Drew Rico and colleagues, with an educational pedro from [employer]. ERVIN-7 Assessment Billing ERVIN-7 Assessment Tool: ERVIN-7 Assessment 28916 Physical exam (Primary Care) Vital Signs: Last Vital Signs Pulse 65 06/08/23 12:53 BP 130/78 06/08/23 12:53 Pulse Ox 98 06/08/23 12:53 Oxygen Delivery Method Room Air 06/08/23 12:53 BMI result Body Mass Index 34.4 Tobacco/Smoking Status: Tobacco use Status Tobacco use date assessed 06/08/23 06/08/23 13:02 Patient Tobacco Use Status Never used Tobacco 06/08/23 13:02 e-Cigarette/Vaping Use Never Used 06/08/23 13:02 Depression Screening Interpretation: Negative Thrive Assessment: Date of Thrive Assessment Date Thrive assessed 10/02/21 06/08/23 13:02 Assessment and Plan Assessment & Plan (1) Migraine without aura: Comment: episodic Code(s): G43.009 - Migraine without aura, not intractable, without status migrainosus Qualifiers: Status migrainosus presence: without status migrainosus Intractability: not intractable Qualified Code(s): G43.009 - Migraine without aura, not intractable, without status migrainosus (2) Obesity (BMI 35.0-39.9 without comorbidity): Code(s): E66.9 - Obesity, unspecified (3) Impaired fasting glucose: Code(s): R73.01 - Impaired fasting glucose (4) Dyslipidemia: Code(s): E78.5 - Hyperlipidemia, unspecified (5) Annual visit for general adult medical examination with abnormal findings: Code(s): Z00.01 - Encounter for general adult medical examination with abnormal findings Orders: Orders Basic Metabolic Panel Fasting Today E55.9 - Vitamin D deficiency, unspecified, E66.9 - Obesity, unspecified, E78.5 - Hyperlipidemia, unspecified, G43.009 - Migraine without aura, not intractable, without status migrainosus, R73.01 - Impaired fasting glucose, Z00.01 - Encounter for general adult medical examination with abnormal findings Vitamin D 25-OH Total Today E55.9 - Vitamin D deficiency, unspecified, E66.9 - Obesity, unspecified, E78.5 - Hyperlipidemia, unspecified, G43.009 - Migraine without aura, not intractable, without status migrainosus, R73.01 - Impaired fasting glucose, Z00.01 - Encounter for general adult medical examination with abnormal findings Hemoglobin A1c Today E55.9 - Vitamin D deficiency, unspecified, E66.9 - Obesity, unspecified, E78.5 - Hyperlipidemia, unspecified, G43.009 - Migraine without aura, not intractable, without status migrainosus, R73.01 - Impaired fasting glucose, Z00.01 - Encounter for general adult medical examination with abnormal findings Alanine Aminotransferase Today E55.9 - Vitamin D deficiency, unspecified, E66.9 - Obesity, unspecified, E78.5 - Hyperlipidemia, unspecified, G43.009 - Migraine without aura, not intractable, without status migrainosus, R73.01 - Impaired fasting glucose, Z00.01 - Encounter for general adult medical examination with abnormal findings Aspartate Amino Transferase Today E55.9 - Vitamin D deficiency, unspecified, E66.9 - Obesity, unspecified, E78.5 - Hyperlipidemia, unspecified, G43.009 - Migraine without aura, not intractable, without status migrainosus, R73.01 - Impaired fasting glucose, Z00.01 - Encounter for general adult medical exa mination with abnormal findings Lipid Panel Today E55.9 - Vitamin D deficiency, unspecified, E66.9 - Obesity, unspecified, E78.5 - Hyperlipidemia, unspecified, G43.009 - Migraine without aura, not intractable, without status migrainosus, R73.01 - Impaired fasting glucose, Z00.01 - Encounter for general adult medical examination with abnormal findings Coding Level of Care Code Est Pt Prev Care 40-64y(94977) Diagnoses Migraine without aura and without status migrainosus, not intractable G43.009 Status migrainosus presence: without status migrainosus Intractability: not intractable Obesity (BMI 35.0-39.9 without comorbidity) E66.9 Impaired fasting glucose R73.01 Dyslipidemia E78.5 Annual visit for general adult medical examination with abnormal findings Z00.01 Additional Codes ERVIN-7 Assessment Billing - ERVIN-7 Assessment Tool: ERVIN-7 Assessment [id number] ([id number])
== END 2023-06-08 13:48 | disposition home or self-care (01) ==
PROVIDERS: Visit Provider Internal Medicine
DX: G43.009 Migraine without aura, not intractable, without status migrainosus (principal); E66.9 Obesity, unspecified; R73.01 Impaired fasting glucose; E78.5 Hyperlipidemia, unspecified; Z00.01 Encounter for general adult medical examination with abnormal findings
CPT/HCPCS: 99499

== ENCOUNTER 2023-07-03 09:11 | Outpatient (REF) | payer OTHER, SELFPAY ==
[2023-07-03 10:36] LABS: Estimated Average Glucose 111 mg/dL; Hemoglobin A1C 114.2373 umol/L; Hemoglobin A1c % 5.5 % (<6.0)
[2023-07-03 10:59] LABS: Alanine Aminotransferase 19 U/L (0-31); Anion Gap 13 (12-20); Aspartate Amino Transferase 17 U/L (5-31); Blood Urea Nitrogen 17 mg/dL (9-16); Calcium 10.4 mg/dL (8.4-10.2); Carbon Dioxide 28 mmol/L (22-29); Chloride 105 mmol/L (96-108); Cholesterol 198 mg/dL (<200); Estimated Glomerular Filt Rate > 60; Glucose Fasting 104 mg/dL (60-99); HDL Cholesterol 58 mg/dL (>40); LDL Cholesterol Calculated 125 mg/dL (<100); Potassium 4.5 mmol/L (3.3-5.1); Sodium 141 mmol/L (135-145); Triglycerides 77 mg/dL (<150)
[2023-07-03 11:14] LABS: Vitamin D 25-OH Total 35.5 ng/mL (>30)
== END 2023-07-03 09:12 | disposition home or self-care (01) ==
LOC: HO.LAB 09:11
PROVIDERS: PCP Internal Medicine; Visit Provider Internal Medicine
DX: Z00.01 Encounter for general adult medical examination with abnormal findings (principal); G43.009 Migraine without aura, not intractable, without status migrainosus; E66.9 Obesity, unspecified; R73.01 Impaired fasting glucose; E78.5 Hyperlipidemia, unspecified; E55.9 Vitamin D deficiency, unspecified
CPT/HCPCS: 36415; 80048; 80061; 82306; 83036; 84450; 84460

== ENCOUNTER 2023-07-25 10:12 | Outpatient (REF) | payer OTHER, SELFPAY | END 2023-07-25 10:13 | disposition home or self-care (01) | LOC: HO.MAMMO 10:12 | PROVIDERS: PCP Internal Medicine; Visit Provider Internal Medicine | DX: Z12.31 Encounter for screening mammogram for malignant neoplasm of breast (principal) | CPT/HCPCS: 77063; 77067 ==

== ENCOUNTER → 2023-07-25 10:30 | Outpatient (BNV) | payer OTHER, SELFPAY | PROVIDERS: PCP Internal Medicine; Visit Provider Radiology Diagnostic Radiology | DX: Z12.31 Encounter for screening mammogram for malignant neoplasm of breast (principal) | CPT/HCPCS: 77063; 77067 ==

== ENCOUNTER 2023-11-18 08:35 | Outpatient (AMB) | payer SELFPAY ==
--- NOTE | 2023-11-18 09:00 | MHC.OFFVIS ---
Intake Vital Signs 11/18/23 09:01 Height 5 ft 6 in Weight 211 lb BMI 34.1 BP 134/82 Blood Pressure Location Rt brachial Position Sitting Pulse 54 Pulse Source Pulse Oximeter Pulse Oximetry (%) 98 Oxygen Delivery Method Room Air Intake Visit Reasons: 6m follow up-Conf Intake Note: Patient presents for 6 month follow up. Allergies Seasonal Allergies Allergy (Intermediate, Verified 11/18/23 09:04) sneezing and coughing Medication List - Last Reconciled 11/18/23 by SERGIO Lao cholecalciferol (vitamin D3) 50 mcg PO DAILY magnesium oxide 400 mg PO BEDTIME 30 days omeprazole 20 mg PO .QOD riboflavin (vitamin B2) 400 mg PO DAILY 30 days sumatriptan succinate 50 - 100 mg orally at onset of headache, may repeat in 2 hrs PRN; max 2 tabs per day or 4 tabs/week (may take with Ibuprofen) 30 days HPI HPI Comments History of Present Illness Details 58-yr-old female presents for f/u visit, accompanied by her . Pt denies any significant interval medical changes. However, she did recently lose her mother and then a few weeks after her son got . Her migraines were much better. She was just having a rare migraine. However, since September, she has had an increase in migraine attacks. Has had 8 migraine attacks since September. She had not been using her Sumatriptan, as she forgot that she had Sumatriptan. She has run out of Magnesium- which was helpful. [facility] Medical History (Updated 06/08/23 @ 15:33 by Bela Bernal MD) History of bone density study Worsening headaches Refused influenza vaccine Obesity (BMI 35.0-39.9 without comorbidity) Impaired fasting glucose Dyslipidemia Vitamin D deficiency L1 vertebral fracture Chiari malformation type I History of COVID-19 Hiatal hernia GERD (gastroesophageal reflux disease) Surgical History Hx of tubal ligation Hx of colonoscopy Family History Brother Cancer Diabetes mellitus Father Cancer Mother Diabetes mellitus Dementia H/O heart surgery Social History Housing: Condominium Alcohol intake: never Patient Tobacco Use Status: Never used Tobacco e-Cigarette/Vaping Use: Never Used Second Hand Smoke Exposure: No service: No Current occupational status: disabled Cognitive needs: No Hearing needs: No Vision needs: No Physical Exam Vital Signs: Last Vital Signs Pulse 54 11/18/23 09:01 BP 134/82 11/18/23 09:01 Pulse Ox 98 11/18/23 09:01 Oxygen Delivery Method Room Air 11/18/23 09:01 BMI result Body Mass Index 34.1 Const General: cooperative and no acute distress Orientation/consciousness: patient oriented x3 Resp Effort & Inspection: normal respiratory effort and able to speak in complete sentences Neuro General: patient oriented x3 Cranial nerves: Yes CN's II-XII intact bilaterally Cognition (Neuro): normal cognition Psych Appearance: grossly normal Mental Status: mental status grossly normal Speech and movement: Normal speech and movement present Affect: normal affect Attitude: cooperative Assessment & Plan Assessment & Plan (1) Migraine without aura: Comment: episodic Code(s): G43.009 - Migraine without aura, not intractable, without status migrainosus Qualifiers: Status migrainosus presence: without status migrainosus Intractability: not intractable Qualified Code(s): G43.009 - Migraine without aura, not intractable, without status migrainosus (2) Mild obstructive sleep apnea: Code(s): G47.33 - Obstructive sleep apnea (adult) (pediatric) (3) Sleep difficulties: Code(s): G47.9 - Sleep disorder, unspecified Plan For overall headache management: Continue to optimize good self-care, including but not limited to maintaining a healthy diet,? adequate fluid intake, adequate sleep, and engaging in regular physical activity. For headache triggers: Track headaches. Continue PT exercises for headache, myofascial release, cervicalgia. Monitor mild JORDAN s/s clinically. ? For acute headache treatment: Discussed importance of taking acute medications at the first sign of headache, however stressed importance of avoiding acute medication overuse (especially with combined headache medications). Excedrin Migriane prn.. Sumatriptan 50-100mg prn at onset of migraine, may repeat in 2 hrs. May take w/ OTC Ibuporfen or Naproxen. Previous acute migraine medication trials: Excedrin Migraine. Acute migraine medication contraindications: None at this time. ? For headache prevention medication: Continue Riboflavin 400mg qam Resume Magnesium 400mg qhs Previous migraine prevention medication trials: None Migraine prevention medication contraindications: None at this time. ? F/u in 6 months or sooner prn new/worsening s/s. Medications: New mecobalamin (vitamin B12) PO Refilled magnesium oxide may hold for loose stools 400 mg PO BEDTIME 30 tabs 6RF 30 days sumatriptan succinate 50 - 100 mg orally at onset of headache, may repeat in 2 hrs PRN; max 2 tabs per day or 4 tabs/week (may take with Ibuprofen) 12 tabs 6RF migraine headache 30 days Coding Level of Care Code Est Pt Level 4 (30378) Diagnoses Migraine without aura and without status migrainosus, not intractable G43.009 Status migrainosus presence: without status migrainosus Intractability: not intractable Mild obstructive sleep apnea G47.33 Sleep difficulties G47.9
[2023-11-18 09:01] VITALS: BP 134/82; PULSE 54; O2SAT 98; BMI 34.1
== END 2023-11-18 09:45 | disposition home or self-care (01) ==
PROVIDERS: PCP Internal Medicine; Visit Provider Nurse Practitioner Family
DX: G43.009 Migraine without aura, not intractable, without status migrainosus (principal); G47.33 Obstructive sleep apnea (adult) (pediatric); G47.9 Sleep disorder, unspecified
CPT/HCPCS: 99214

== ENCOUNTER → 2023-11-18 08:35 | Outpatient (BNVA) | payer OTHER, SELFPAY | PROVIDERS: PCP Internal Medicine; Visit Provider Nurse Practitioner Family | DX: G43.009 Migraine without aura, not intractable, without status migrainosus (principal); G47.33 Obstructive sleep apnea (adult) (pediatric); G47.9 Sleep disorder, unspecified | CPT/HCPCS: 99212 ==

== ENCOUNTER 2024-04-08 11:42 | Outpatient (AMB) | payer SELFPAY ==
--- NOTE | 2024-04-08 11:43 | AM.OFFWIN_ITS ---
Intake Vital Signs 3 04/08/24 11:44 Height 5 ft 6 in Weight 216 lb BMI 34.9 BP 128/84 Blood Pressure Location Rt brachial Position Standing Pulse 65 Pulse Source Pulse Oximeter Temp 98.3 F Temp Source Oral Pulse Oximetry (%) 98 Oxygen Delivery Method Room Air Intake Visit Reasons: lower back and left leg pain Intake Note: pt c/o lower back and left leg pain. Started in January w/ left leg behind knee, has progressed to entire left leg. Hurt lower back on Thursday of this week. Patient Tobacco Use Status: Never used Tobacco Allergies Seasonal Allergies Allergy (Intermediate, Verified 04/08/24 11:43) sneezing and coughing Medication List - Last Reconciled 04/08/24 by Ashish Sawyer MD baclofen 20 mg PO BEDTIME biotin 2,500 mcg PO DAILY cholecalciferol (vitamin D3) 50 mcg PO DAILY diclofenac potassium 50 mg PO BID magnesium oxide 400 mg PO BEDTIME 30 days mecobalamin (vitamin B12) PO omeprazole 20 mg PO BID 7 days sumatriptan succinate 50 - 100 mg orally at onset of headache, may repeat in 2 hrs PRN; max 2 tabs per day or 4 tabs/week (may take with Ibuprofen) 30 days Do you need a note to return to daycare/school/sports/work: No HPI lower back and left leg pain 2 HPI0 Details 58-year-old obese female came in today t o be evaluated for left knee pain And left lower back pain Patient says that her left knee is hurting since January and is getting worse Pain is located more so in the back Since past 2 days she also have pain left lower lumbar area Patient says that she has 8-year-old at home that she is taking care of And her bedroom is upstairs she has to climb stairs to go up and down. On examination she is tender behind the knee and slightly below I have ordered stat ultrasound of left knee to rule out DVT and Don's cyst inflammation I am sending diclofenac 50 mg to be taken b.i.d. She is to increase omeprazole to b.i.d. as well while taking the diclofenac Baclofen 20 mg sent to be taken at night Follow up with primary care [facility] Medical History History of bone density study Worsening headaches Refused influenza vaccine Obesity (BMI 35.0-39.9 without comorbidity) Impaired fasting glucose Dyslipidemia Vitamin D deficiency L1 vertebral fracture Chiari malformation type I History of COVID-19 Hiatal hernia GERD (gastroesophageal reflux disease) Surgical History Hx of tubal ligation Hx of colonoscopy Family History Brother Cancer Diabetes mellitus Father Cancer Mother Diabetes mellitus Dementia H/O heart surgery Social [facility] Alcohol intake: never Patient Tobacco Use Status: Never used Tobacco e-Cigarette/Vaping Use: Never Used Second Hand Smoke Exposure: No service: No Current occupational status: disabled Cognitive needs: No Hearing needs: No Vision needs: No Review of Systems Const All systems reviewed & are unremarkable except as noted in HPI and below Physical Exam Vital Signs: Last Vital Signs Temp 98.3 F 04/08/24 11:44 Pulse 65 04/08/24 11:44 BP 128/84 04/08/24 11:44 Pulse Ox 98 04/08/24 11:44 Oxygen Delivery Method Room Air 04/08/24 11:44 BMI result Body Mass Index 34.9 Const General: no acute distress Orientation/consciousness: patient oriented x3 Eyes General: appearance normal, both eyes and all related structures Resp Effort & Inspection: normal respiratory effort and able to speak in complete sentences Cardio Other: S1 S2 Back/Spine/Pelvis Back/spine/pelvis image: 2 1. Pain with percussion paraspinal lumbar Neuro General: patient oriented x3 Extrem Elbow/forearm/wrist images: 2 1. Pain with pressure, unable to straighten the leg because of pain Psych Mental Status: mental status grossly normal Assessment & Plan Assessment & Plan (1) Tenderness of left calf: Code(s): M79.662 - Pain in left lower leg (2) Don's cyst of knee: Code(s): M71.20 - Synovial cyst of popliteal space [Don], unspecified knee Qualifiers: Laterality: left Qualified Code(s): M71.22 - Synovial cyst of popliteal space [Don], left knee (3) Strain of lumbar paraspinal muscle: Code(s): S39.012A - Strain of muscle, fascia and tendon of lower back, initial encounter Qualifiers: Encounter type: initial encounter Qualified Code(s): S39.012A - Strain of muscle, fascia and tendon of lower back, initial encounter Plan 58-year-old obese female came in today to be evaluated for left knee pain And left lower back pain Patient says that her left knee is hurting since January and is getting worse Pain is located more so in the back Since past 2 days she also have pain left lower lumbar area Patient says that she has 8-year-old at home that she is taking care of And her bedroom is upstairs she has to climb stairs to go up and down. On examination she is tender behind the knee and slightly below I have ordered stat ultrasound of left knee to rule out DVT and Don's cyst inflammation I am sending diclofenac 50 mg to be taken b.i.d. She is to increase omeprazole to b.i.d. as well while taking the diclofenac Baclofen 20 mg sent to be taken at night Follow up with primary care Orders: Orders 2 US venous duplex LE LT Today M71.20 - Synovial cyst of popliteal space [Don], unspecified knee, M79.662 - Pain in left lower leg Medications: New 2 diclofenac potassium Take it with food 50 mg PO BID 14 tabs 0RF baclofen 20 mg PO BEDTIME 7 tabs 0RF Changed 2 From omeprazole 20 mg PO .QOD To omeprazole 20 mg PO BID 14 tabs 0RF 7 days Coding Level of Care Code Est Pt Level 4 (64488) Diagnoses Tenderness of left calf M79.662 Synovial cyst of left knee M71.22 Laterality: left Strain of lumbar paraspinous muscle, initial encounter S39.012A Encounter type: initial encounter
[2024-04-08 11:44] VITALS: BP 128/84; PULSE 65; TEMP 36.8; O2SAT 98; BMI 34.9
== END 2024-04-08 14:33 | disposition home or self-care (01) ==
PROVIDERS: PCP Internal Medicine; Visit Provider Internal Medicine
DX: M79.662 Pain in left lower leg (principal); M71.22 Synovial cyst of popliteal space [Baker], left knee; S39.012A Strain of muscle, fascia and tendon of lower back, initial encounter
CPT/HCPCS: 99214

== ENCOUNTER 2024-04-08 12:56 | Outpatient (REF) | payer SELFPAY ==
--- NOTE | ~2024-04-08 | US_ITS ---
EXAMINATION: US EXTREMITY, NONVASCULAR CLINICAL INFORMATION: Left posterior knee pain. COMPARISON: None available. TECHNIQUE: Targeted sonography of the popliteal fossa. FINDINGS: Sonographic interrogation of the left popliteal fossa was performed. Imaged segment of the left popliteal vein are patent and compressible. There is a small effusion medial to the patella. No popliteal fossa fluid collection. US/US extremity nonvascular IMPRESSION: No sonographic evidence of a Dno's cyst.
== END 2024-04-08 12:57 | disposition home or self-care (01) ==
LOC: HO.HMGCX 12:56
PROVIDERS: PCP Internal Medicine; Visit Provider Internal Medicine
DX: M71.20 Synovial cyst of popliteal space [Baker], unspecified knee (principal); M79.662 Pain in left lower leg
CPT/HCPCS: 76882

== ENCOUNTER 2024-06-09 08:31 | Outpatient (AMB) | payer SELFPAY ==
[2024-06-09 08:49] VITALS: BP 138/90; PULSE 58; O2SAT 99; BMI 34.7
--- NOTE | 2024-06-09 08:49 | MHC.PC.OV ---
Vital Signs 06/09/24 08:49 Height 5 ft 6 in Weight 215 lb BMI 34.7 BP 138/90 H Blood Pressure Location Rt brachial Position Sitting Pulse 58 Pulse Source Pulse Oximeter Pulse Oximetry (%) 99 Oxygen Delivery Method Room Air Intake Visit Reasons: PE Intake Note: Pt is here today for her PE: last mammogram 07/25/23, papsmear 09/19/21, colonoscopy 10/26/19 Allergies Seasonal Allergies Allergy (Intermediate, Verified 06/09/24 09:54) sneezing and coughing Medication List - Last Reconciled 06/09/24 by Bela Bernal MD biotin 2,500 mcg PO DAILY cholecalciferol (vitamin D3) 50 mcg PO DAILY magnesium oxide 400 mg PO BEDTIME 30 days mecobalamin (vitamin B12) PO omeprazole 20 mg PO .QOD sumatriptan succinate 50 - 100 mg orally at onset of headache, may repeat in 2 hrs PRN; max 2 tabs per day or 4 tabs/week (may take with Ibuprofen) 30 days Tobacco use date assessed: 06/09/24 Dental Screening Dental Screen Date: 06/09/24 Did you have a dental visit in the last 12 months?: No Did you have a dental problem in the last 6 months where you did not have access to dental care?: No Was dental information given to patient?: Patient has dentist HPI PE HPI Details 58-year-old lady here today for physical exam. She is up-to-date with her screening mammogram due again in 08/03/2024, last Pap smear was done at [facility] in 2021 which showed abnormal cells. Patient however has not yet made an appointment is waiting for her insurance to be reestablished. She had a colonoscopy done by Dr. Swann in 2019, with a polyp removed, due again for recheck in 2024. She is currently being followed [facility] for her migraine headaches, currently stable and controlled on sumatriptan, on magnesium oxide . Complains of persistent pain in her left knee, bending, extended periods of time. She was prescribed at the walk-in clinic with diclofenac which afforded only temporary relief and baclofen for her low back pain. Unable to get any x-rays done due to lack of insurance. No history of trauma [facility] Medical History History of bone density study Worsening headaches Refused influenza vaccine Obesity (BMI 35.0-39.9 without comorbidity) Impaired fasting glucose Dyslipidemia Vitamin D deficiency L1 vertebral fracture Chiari malformation type I History of COVID-19 Hiatal hernia GERD (gastroesophageal reflux disease) Surgical History Hx of tubal ligation Hx of colonoscopy Family History Brother Cancer Diabetes mellitus Father Cancer Mother Diabetes mellitus Dementia H/O heart surgery Social History Housing: Condominium Alcohol intake: never Patient Tobacco Use Status: Never used Tobacco e-Cigarette/Vaping Use: Never Used Second Hand Smoke Exposure: No service: No Current occupational status: disabled Cognitive needs: No Hearing needs: No Vision needs: No Questionnaire PHQ-9 Over the last 2 weeks, how often have you been bothered by any of the following problems? 1. Little interest or pleasure in doing things: not at all 2. Feeling down, depressed, or hopeless: not at all 3. Trouble falling or staying asleep, or sleeping too much: not at all 4. Feeling tired or having little energy: not at all 5. Poor appetite or overeating: not at all 6. Feeling bad about yourself - or that you are a failure or have let yourself or your family down: not at all 7. Trouble concentrating on things, such as reading the newspaper or watching television: not at all 8. Moving or speaking so slowly that other people could have noticed. Or the opposite - being so fidgety or restless that you have been moving around a lot more than usual: not at all 9. Thoughts that you would be better off or of hurting yourself in some way: not at all Total score: 0 Depression Screening Interpretation: Negative Depression Screening Done: Yes 07487 - PHQ-9 Billing: Yes Source: Developed by Drs. Lucian Bacon, Heidi Borrego, Drew Rico and colleagues, with an educational pedro from [employer]. Thrive Questionnaire Date Thrive assessed: 06/09/24 I am a: Patient What is your living situation today?: I have a steady place to live Within the past 12 months, did the food you bought not last and you didn't have the money to get more?: Never true Within the past 12 months, did you worry whether your food would run out before you got money to buy more?: Never true Do you have trouble paying for medicines?: No Do you have trouble getting transportation to medical appointments?: No Do you have trouble paying your heating and electricity bill?: No Do you have trouble taking care of your child, family member or friend?: No Do you have trouble with day-to-day activities such as bathing, preparing meals, shopping, managing finances, etc.?: No Are you currently unemployed and looking for a job?: No Are you interested in more education?: No THRIVE Score: 0 AUDIT C Alcohol Use Questionnaire (AUDIT-C) 1. How often do you have a drink containing alcohol?: Never Total Score: 0 ERVIN-7 AMB Questionnaire ERVIN-7 Date ERVIN - 7 assessed: 06/09/24 Feeling nervous, anxious, or on edge: 0 = Not at all Worrying too much about different things: 0 = Not at all Trouble relaxin = Not at all Being so restless that it is hard to sit still: 0 = Not at all Becoming easily annoyed or irritable: 0 = Not at all Feeling afraid as if something awful might happen: 0 = Not at all Source: Developed by Drs. Lucian Bacon, Heidi Borrego, Drew Rico and colleagues, with an educational pedro from [employer]. ERVIN-7 Assessment Billing ERVIN-7 Assessment Tool: ERVIN-7 Assessment 94060 Review of Systems Const Denies anorexia, Denies chills, Denies fatigue and Denies fever(s) Eyes Reports no additional complaints ENT Reports no additional complaints Card Reports no additional complaints Resp Reports no additional complaints GI Reports no additional complaints Reports no additional complaints Musc Reports as per HPI Skin/Breast Reports as per HPI and Reports nail changes Neuro Reports no additional complaints Psych Reports no additional complaints Endo Denies fatigue Michel/Lymph Reports no additional complaints Aller/Immun Reports no additional complaints Physical exam (Primary Care) Vital Signs: Last Vital Signs Pulse 58 06/09/24 08:49 BP 138/90 H 06/09/24 08:49 Pulse Ox 99 06/09/24 08:49 Oxygen Delivery Method Room Air 06/09/24 08:49 BMI result Body Mass Index 34.7 BMI Assessment/Plan discussion: High BMI High, discussed plan: lifestyle, weight reduction, dietary and physical activity Tobacco/Smoking Status: Tobacco use Status Tobacco use date assessed 06/09/24 06/09/24 08:50 Patient Tobacco Use Status Never used Tobacco 06/09/24 08:50 e-Cigarette/Vaping Use Never Used 06/09/24 08:50 PHQ-9: PHQ-9 Score PHQ-9: Total score 0 06/09/24 10:00 Depression Screening Interpretation: Negative Thrive Assessment: Date of Thrive Assessment Date Thrive assessed 06/09/24 06/09/24 08:56 Const General: cooperative, comfortable and no acute distress Nutritional Appearance: obese Orientation/consciousness: patient oriented x3 HENMT Head: Yes normocephalic Ears: external ears normal, TM's normal bilaterally and EAC's normal General nose exam: Normal nares present and No nasal discharge present Face and sinus: Yes face symmetric Mouth: Normal oral and palatal mucosa present and moist mucous membranes Eyes General: appearance normal, both eyes and all related structures Neck Neck: Yes full ROM, Yes no lymphadenopathy, Yes no meningeal signs and Yes supple Thyroid: Thyroid normal Chest Chest palpation & inspection: normal inspection of the chest Breast/axilla inspection: normal inspection of the breasts Breast/axilla palpation: normal palpation of the breasts Resp Auscultation: clear to auscultation bilaterally Cardio Rate: regular rate Rhythm: regular rhythm Heart sounds: S1 normal heart sound present and S2 normal heart sound present GI Palpation (GI): Soft to palpation, nontender, no guarding and no masses Auscultation: normal bowel sounds General: Yes no CVA tenderness and Yes deferred (Goes to OBGYN) Back/Spine/Pelvis Back: no CVA tenderness and No back tenderness Skin General skin exam: no rashes or lesions noted Neuro General: patient oriented x3, gait normal, moves all extremities, Normal light touch and pain sensation, no meningeal signs, no focal motor deficits and CN's II-XI intact bilaterally Extrem Other: crepitus on left knee General: Yes full ROM, Yes no joint enlargement, Yes no clubbing, cyanosis or edema, Yes no pedal edema and Yes normal gait Psych Appearance: grossly normal and well kempt Mental Status: mental status grossly normal Speech and movement: Normal speech and movement present Affect: normal affect Attitude: cooperative Thought process: Normal thought process present Assessment and Plan Assessment & Plan (1) Patellofemoral arthritis of right knee: Code(s): M17.11 - Unilateral primary osteoarthritis, right knee Plan: Advised to try [id number] diclofenac gel 1%, massaged on to affected joint 4 times a day as needed. (2) Obesity (BMI 35.0-39.9 without comorbidity): Code(s): E66.9 - Obesity, unspecified Plan: Your BMI is above the ideal range. Discussed need to increase activity and weight reduction. Recommended focusing on improving health instead of dieting. Mediterranean diet is a healthy diet that helps, limit food high in fat, sugar, and calories. Eat slowly, pay attention to portion sizes, plan your meals ahead of time, start regular physical activity, at least 150 minutes of moderate intensity exercise, or 90 minutes per week of vigorous exercise. Keeping a food diary, tracking what you eat and your physical activity can help assess what improvements you can make. There are many health problems associated with being overweight/obese, so it is important to improve your diet and exercise. There are medications and surgical options available, but Lifestyle changes are the 1st step. (3) Impaired fasting glucose: Code(s): R73.01 - Impaired fasting glucose Plan: Your previous fasting blood sugars were elevated above 100 mg/dL. Impaired glucose metabolism increases the risk for developing diabetes mellitus type 2, as well as heart attack and stroke later on. Lifestyle changes that promotes weight loss, healthy eating habits, and regular exercise are important, and can prevent the progression to diabetes (4) Advanced directives, counseling/discussion: Code(s): Z71.89 - Other specified counseling Plan: Initiated the conversation about Advanced Directives. Advanced Directives help patients prepare for current and future decisions about their medical treatment and place of care. Discussed with patient that it is a process where a patients current condition and prognosis are reviewed, their wishes for information regarding their illness are elicited, and likely medical dilemmas are presented and options discussed. Healthcare proxy form completed. The form can be amended as needed, reviewed yearly and make changes as needed (5) Annual visit for general adult medical examination with abnormal findings: Code(s): Z00.01 - Encounter for general adult medical examination with abnormal findings Plan: Will check appropriate labs. Recommended dental visit every 6 months and regular eye exams, at least every 2 years. Take adequate calcium in diet and vitamin-D 3 at 2000 IU per cap once a day, in addition to weight-bearing exercises to help maintain good muscle tone and weight control. Instructed to do self-breast exam, and recommended to get yearly mammogram. Patient to call and schedule appointment with her OBGYN as soon as insurance reinstated. Overdue for follow-up cervical cancer screening . She had a colonoscopy done by Dr. Swann in 2019, with a polyp removed, due again for recheck in 2024. Reminded to get her yearly flu shot and COVID booster. Patient however does not want to get any of these vaccines. She has had a Tdap in 2017. So recommended to get shingles vaccine (6) Left anterior knee pain: Code(s): M25.562 - Pain in left knee Plan: Does not want to get further testing for this at present time, advised to try [id number] diclofenac gel 1%, massaged to affected joint 4 times a day as needed. Orders: Orders Lipid Panel 06/09/24 E66.9 - Obesity, unspecified, M17.11 - Unilateral primary osteoarthritis, right knee, M25.562 - Pain in left knee, R73.01 - Impaired fasting glucose, Z00.01 - Encounter for general adult medical examination with abnormal findings, Z71.89 - Other specified counseling Alanine Aminotransferase 06/09/24 E66.9 - Obesity, unspecified, M17.11 - Unilateral primary osteoarthritis, right knee, M25.562 - Pain in left knee, R73.01 - Impaired fasting glucose, Z00.01 - Encounter for general adult medical examination with abnormal findings, Z71.89 - Other specified counseling Basic Metabolic Panel Fasting 06/09/24 E66.9 - Obesity, unspecified, M17.11 - Unilateral primary osteoarthritis, right knee, M25.562 - Pain in left knee, R73.01 - Impaired fasting glucose, Z00.01 - Encounter for general adult medical examination with abnormal findings, Z71.89 - Other specified counseling Vitamin D 25-OH Total 06/09/24 E66.9 - Obesity, unspecified, M17.11 - Unilateral primary osteoarthritis, right knee, M25.562 - Pain in left knee, R73.01 - Impaired fasting glucose, Z00.01 - Encounter for general adult medical examination with abnormal findings, Z71.89 - Other specified counseling Aspartate Amino Transferase 06/09/24 E66.9 - Obesity, unspecified, M17.11 - Unilateral primary osteoarthritis, right knee, M25.562 - Pain in left knee, R73.01 - Impaired fasting glucose, Z00.01 - Encounter for general adult medical examination with abnormal findings, Z71.89 - Other specified counseling Coding Level of Care Code Est Pt Prev Care 40-64y(91174) Diagnoses Patellofemoral arthritis of right knee M17.11 Obesity (BMI 35.0-39.9 without comorbidity) E66.9 Impaired fasting glucose R73.01 Advanced directives, counseling/discussion Z71.89 Annual visit for general adult medical examination with abnormal findings Z00.01 Left anterior knee pain M25.562 Additional Codes ERVIN-7 Assessment Billing - ERVIN-7 Assessment Tool: ERVIN-7 Assessment [id number] ([id number])
== END 2024-06-09 09:53 | disposition home or self-care (01) ==
LOC: HO.HMCC 08:31
PROVIDERS: PCP Internal Medicine; Visit Provider Internal Medicine
DX: Z00.00 Encounter for general adult medical examination without abnormal findings (principal); M17.11 Unilateral primary osteoarthritis, right knee; E66.9 Obesity, unspecified; Z68.34 Body mass index [BMI] 34.0-34.9, adult; R73.01 Impaired fasting glucose; Z71.89 Other specified counseling; M25.562 Pain in left knee

== ENCOUNTER → 2024-06-09 08:31 | Outpatient (BNVA) | payer SELFPAY | PROVIDERS: PCP Internal Medicine; Visit Provider Internal Medicine | DX: Z00.01 Encounter for general adult medical examination with abnormal findings (principal); M17.11 Unilateral primary osteoarthritis, right knee; E66.9 Obesity, unspecified; R73.01 Impaired fasting glucose; M25.562 Pain in left knee; Z71.89 Other specified counseling | CPT/HCPCS: 96127; 99396 ==